=== PATIENT | male | born 1980 | race Caucasian/White ===

== ENCOUNTER 2017-12-04 23:15 | Emergency (ER) | payer MEDICAID ==
[~2017-12-04] VITALS: Ht 167.6 cm; Wt 74.8 kg
[~2017-12-04 23:15] MED LIST: CLIN-77 PO; L.RH1CAP PO
[2017-12-04 23:26] VITALS: BP_SYST 151
--- NOTE | 2017-12-04 23:26 | NUR ---
Patient triaged and placed in waiting room. VSS and patient appears in no acute distress at this time. Accompanied by self, awaiting available bed, and MD notified of need for MSE.
--- NOTE | 2017-12-05 01:15 | NUR ---
Patient to ER bed 3 to await MD evaluation.
--- NOTE | 2017-12-05 01:20 | NUR ---
Patient to ER via triage with c/o left great toe numbness/tingling with possible neuropathy from DM. Patient with wound to left foot without evidence of infection. Patient is awake, alert and oriented in no acute distress, BP elevated but vital signs otherwise stable, respirations even and unlabored, skin warm and dry to touch. Awaiting evaluation by ER MD, will continue to observe and assess.
--- NOTE | 2017-12-05 01:30 | NUR ---
Dr Wu at bedside to evaluate patient.
[2017-12-05 02:24] VITALS: BP_SYST 137
--- NOTE | 2017-12-05 02:24 | NUR ---
Patient given written and verbal discharge instructions and verbalizes understanding. ER MD discussed with patient the results and treatment provided. Patient in stable condition. ID arm band removed. Rx of Gabapentin given. Patient educated on pain management and to follow up with PMD. Pain Scale 3/10. Opportunity for questions provided and answered. Medication side effect fact sheet provided.
== END 2017-12-05 02:24 | disposition home or self-care (01) ==
LOC: SED 23:15
DX: E11.40 Type 2 diabetes mellitus with diabetic neuropathy, unspecified (principal); I10 Essential (primary) hypertension
CPT/HCPCS: 99283

== ENCOUNTER 2018-01-28 10:44 | Emergency (ER) | payer MEDICAID ==
[~2018-01-28] VITALS: Ht 170.2 cm; Wt 77.1 kg
[~2018-01-28 10:44] MED LIST changes: -CLIN-77 PO; +CLIN300C11 PO
[2018-01-28 11:10] VITALS: BP_SYST 112
[2018-01-28 11:38] VITALS: BP_SYST 110
== END 2018-01-28 11:38 | disposition home or self-care (01) ==
LOC: SED 10:44
DX: H10.89 Other conjunctivitis (principal); E11.9 Type 2 diabetes mellitus without complications; I10 Essential (primary) hypertension
CPT/HCPCS: 99283

== ENCOUNTER 2018-01-29 13:37 | Emergency (ER) | payer MEDICAID ==
[~2018-01-29] VITALS: Ht 170.2 cm; Wt 77.1 kg
[2018-01-29 13:55] VITALS: BP_SYST 137
[2018-01-29] MEDS ORDERED: KETOROLAC TROMETHAMINE 30 MG VIAL IM ONE (14:15)
[2018-01-29] MEDS ORDERED: cefTRIAXone 1 GM VIAL IM ONE (14:15)
[2018-01-29] MEDS ORDERED: CIPROFLOXACIN HCL 0.3% EYE DRP 2.5 ML DROPS OP ONE (14:45)
[2018-01-29 15:12] VITALS: BP_SYST 131
== END 2018-01-29 15:12 | disposition home or self-care (01) ==
LOC: SED 13:37
DX: H10.9 Unspecified conjunctivitis (principal); H53.149 Visual discomfort, unspecified; E11.9 Type 2 diabetes mellitus without complications; I10 Essential (primary) hypertension
CPT/HCPCS: 96372; 99284; J0696; J1885

== ENCOUNTER 2018-04-04 10:14 | Emergency (ER) | payer MEDICAID ==
[~2018-04-04] VITALS: Ht 170.2 cm; Wt 79.4 kg
[2018-04-04 10:32] VITALS: BP_SYST 145
[2018-04-04] MEDS ORDERED: NACL 0.9% 1,000 ML IV ONE (11:15)
[2018-04-04] MEDS ORDERED: LIDOCAINE 1% 10 MG/ML, 20 ML MDV INJ ONE (11:30)
[2018-04-04 11:36] LABS: BASOPHILS # (AUTO) 0.1 K/uL (0.0-0.2); BASOPHILS % (AUTO) 1.1 % (0.0-2.0); EOSINOPHILS # (AUTO) 0.2 K/uL (0.0-0.4); EOSINOPHILS % (AUTO) 1.4 % (0.0-4.0); HEMATOCRIT 39.1 % (36-54); HEMOGLOBIN 12.5 g/dL (14.0-18.0); LYMPHOCYTES # (AUTO) 2.6 K/uL (1.0-5.5); LYMPHOCYTES % (AUTO) 20.4 % (20.5-51.5); MEAN CORPUSCULAR HEMOGLOBIN 29 pg (27-31); MEAN CORPUSCULAR HGB CONC 32 % (32-36); MEAN CORPUSCULAR VOLUME 90 fL (79.0-98.0); MONOCYTES # (AUTO) 0.7 K/uL (0.0-1.0); MONOCYTES % (AUTO) 5.6 % (1.7-9.3); NEUTROPHILS # (AUTO) 9.1 K/uL (1.8-7.7); NEUTROPHILS % (AUTO) 71.5 % (40.0-70.0); PLATELET COUNT (AUTO) 427 K/uL (130-430); RED BLOOD CELL COUNT(AUTO) 4.36 MIL/uL (4.2-6.2); RED CELL DISTRIBUTION WIDTH 13.3 % (9.0-15.0); WHITE BLOOD COUNT (AUTO) 12.7 K/uL (4.8-10.8)
[2018-04-04] MEDS ORDERED: SULFAMETHOXAZOLE/TRIMETHOPR DS 1 TABLET PO ONE (11:45)
[2018-04-04] MEDS ORDERED: CLINDAMYCIN 900 mg/50mL D5W 50 ML IV ONE (11:45)
[2018-04-04 11:46] LABS: CALCIUM 9.2 mg/dL (8.4-11.0); CREATININE 0.76 mg/dL (0.55-1.30); POTASSIUM 3.2 mmol/L (3.5-5.1)
[2018-04-04 11:49] LABS: INR 1.1 (0.80-1.20); PROTHROMBIN TIME 10.8 SECS (9.5-12.5)
[2018-04-04 11:51] LABS: ALBUMIN 3.4 g/dL (3.4-4.8); TOTAL BILIRUBIN 0.4 mg/dL (0.0-1.0)
[2018-04-04 12:41] VITALS: BP_SYST 132
== END 2018-04-04 12:41 | disposition home or self-care (01) ==
LOC: SED 10:14
DX: L03.012 Cellulitis of left finger (principal); L03.011 Cellulitis of right finger; E11.9 Type 2 diabetes mellitus without complications; I10 Essential (primary) hypertension; Z79.4 Long term (current) use of insulin
CPT/HCPCS: 10060; 36415; 71045; 73130; 80053; 83605; 85025; 85610; 85730; 87040; 96365; 99285; J2001; J3490; J7030

== ENCOUNTER 2018-04-30 04:21 | Emergency (ER) | payer MEDICAID ==
[~2018-04-30] VITALS: Ht 170.2 cm; Wt 79.4 kg
[2018-04-30 04:37] VITALS: BP_SYST 157
[2018-04-30] MEDS ORDERED: BACITRACIN 1 GM OINT TP ONE (04:45)
[2018-04-30 05:11] VITALS: BP_SYST 133
== END 2018-04-30 05:13 | disposition home or self-care (01) ==
LOC: SED 04:21
DX: L03.811 Cellulitis of head [any part, except face] (principal); E11.9 Type 2 diabetes mellitus without complications; I10 Essential (primary) hypertension
CPT/HCPCS: 82962; 99283

== ENCOUNTER 2018-06-15 15:23 | Emergency (ER) | payer MEDICAID ==
[~2018-06-15] VITALS: Ht 170.2 cm; Wt 77.1 kg
[2018-06-15 15:30] VITALS: BP_SYST 137
--- NOTE | 2018-06-15 15:34 | NUR ---
Patient triaged and placed in waiting room. VSS and patient appears in no acute distress at this time. Accompanied by SELF, awaiting available bed, and MD notified of need for MSE.
--- NOTE | 2018-06-15 15:45 | NUR ---
Pt AAOx4 ambulated into ED c/o annular pustular skin lesions with contests easily expressed with palpation to crown of head x 1 month. Pt states he shaves his head daily, and has been placing neosporin on his wounds with slight improvement. Pt denies pain. No other injuries/complaints per pt/noted. Will continue to monitor.
--- NOTE | 2018-06-15 15:58 | NUR ---
ER MAL SCHMITT examining patient.
--- NOTE | 2018-06-15 16:00 | NUR ---
Patient given written and verbal discharge instructions and verbalizes understanding. ER SEED EXPERT OSKAR discussed with patient the results and treatment provided. Patient in stable condition. ID arm band removed. Rx of MUPIROCIN, DOXYCLINE given. Patient educated on pain management and to follow up with PMD. Pain Scale 0. Opportunity for questions provided and answered. Medication side effect fact sheet provided.
[2018-06-15 16:05] VITALS: BP_SYST 145
== END 2018-06-15 16:05 | disposition home or self-care (01) ==
LOC: SED 15:23
DX: L73.8 Other specified follicular disorders (principal); E11.9 Type 2 diabetes mellitus without complications; I10 Essential (primary) hypertension
CPT/HCPCS: 99283

== ENCOUNTER 2018-07-29 19:02 | Emergency (ER) | payer MEDICAID ==
[~2018-07-29] VITALS: Ht 170.2 cm; Wt 77.1 kg
[2018-07-29 19:18] VITALS: BP_SYST 143
[2018-07-29 20:00] VITALS: BP_SYST 133
== END 2018-07-29 20:00 | disposition home or self-care (01) ==
LOC: SED 19:02
DX: L73.1 Pseudofolliculitis barbae (principal); R03.0 Elevated blood-pressure reading, without diagnosis of hypertension
CPT/HCPCS: 99283

== ENCOUNTER 2018-09-28 16:01 | Emergency (ER) | payer MEDICAID ==
[~2018-09-28] VITALS: Ht 170.2 cm; Wt 77.1 kg
[2018-09-28 16:10] VITALS: BP_SYST 148
[2018-09-28] MEDS ORDERED: KETOROLAC TROMETHAMINE 60 MG/2 ML VIAL IM ONE (20:15)
[2018-09-28 21:50] VITALS: BP_SYST 148
== END 2018-09-28 21:50 | disposition home or self-care (01) ==
LOC: SED 16:01
DX: S40.022A Contusion of left upper arm, initial encounter (principal); E11.9 Type 2 diabetes mellitus without complications; I10 Essential (primary) hypertension; Z79.899 Other long term (current) drug therapy; X99.9XXA Assault by unspecified sharp object, initial encounter; Y93.89 Activity, other specified; Y92.89 Other specified places as the place of occurrence of the external cause; Y99.8 Other external cause status
CPT/HCPCS: 73060; 73080; 96372; 99283; J1885

== ENCOUNTER 2018-11-24 20:16 | Emergency (ER) | payer MEDICAID ==
[~2018-11-24] VITALS: Ht 170.2 cm; Wt 81.6 kg
[2018-11-24 20:20] VITALS: BP_SYST 151
== END 2018-11-24 21:10 | disposition home or self-care (01) ==
LOC: SED 20:16
DX: H66.92 Otitis media, unspecified, left ear (principal); E11.9 Type 2 diabetes mellitus without complications; I10 Essential (primary) hypertension; Z79.899 Other long term (current) drug therapy
CPT/HCPCS: 99283

== ENCOUNTER 2019-09-11 17:04 | Emergency (ER) | payer MEDICAID ==
[~2019-09-11] VITALS: Ht 167.6 cm; Wt 89.8 kg
[2019-09-11 17:10] VITALS: BP_SYST 123
[2019-09-11] MEDS ORDERED: ACETAMINOPHEN 500 MG TABLET PO ONE (17:30)
[2019-09-11] MEDS ORDERED: ONDANSETRON 4 MG ODT TAB PO ONE (17:30)
[2019-09-11] MEDS ORDERED: IPRATROPIUM/ALBUTEROL SULFATE 3 ML AMPUL.NEB (DUONEB) INH ONE (17:45)
[2019-09-11 18:52] VITALS: BP_SYST 116
== END 2019-09-11 18:52 | disposition home or self-care (01) ==
LOC: SED 17:04
DX: J06.9 Acute upper respiratory infection, unspecified (principal); E11.9 Type 2 diabetes mellitus without complications; I10 Essential (primary) hypertension; Z79.4 Long term (current) use of insulin
CPT/HCPCS: 71045; 82962; 86710; 94640; 99284; Q0162; 36415

== ENCOUNTER → 2020-01-16 | Emergency (ER) | payer MEDICAID ==
[~2020-01-16] VITALS: Ht 170.2 cm; Wt 93.0 kg
[~2020-01-16] MED LIST changes: +HYDROcodone/ACETAMIN 5-325 MG TAB (NORCO/ VICODIN) PO ONE
[2020-01-16 09:56] VITALS: BP_SYST 133
--- NOTE | 2020-01-16 10:01 | NUR ---
Patient triaged and placed in waiting room. VSS and patient appears in no acute distress at this time. Awaiting available bed, and MD notified of need for MSE.
--- NOTE | 2020-01-16 11:51 | NUR ---
Jean Claude angela in [facility] - 01/16/20 at 1202 by LINWOOD Patient left without being seen.
--- NOTE | 2020-01-16 12:02 | NUR ---
Patient to [facility] for evaluation. Side rails up.
--- NOTE | 2020-01-16 12:49 | NUR ---
Administered Pritchett PO as ordered by Dr. Kebede. Patient tolerated the medications well. See eMAR for details.
--- NOTE | 2020-01-16 12:53 | NUR ---
ER MD discussed with the patient the results and treatment provided. Patient given written and verbal discharge instructions and verbalized understanding. Opportunity for questions provided and answered. Patient in stable condition, last set of vital signs within normal limits, pain scale 0/10, speaking in full sentences and ambulated with a steady gait upon discharge. ID arm band removed. Rx of [place] given. Patient educated on pain management and to follow up with PMD. Medication side effect fact sheet provided.
== END | disposition still patient (30) ==
LOC: SED 09:52
DX: S42.291A Other displaced fracture of upper end of right humerus, initial encounter for closed fracture (principal); I10 Essential (primary) hypertension; E11.9 Type 2 diabetes mellitus without complications; Z79.4 Long term (current) use of insulin; V19.9XXA Pedal cyclist (driver) (passenger) injured in unspecified traffic accident, initial encounter; Y93.89 Activity, other specified; Y92.89 Other specified places as the place of occurrence of the external cause; Y99.8 Other external cause status
CPT/HCPCS: 73030; 99283

== ENCOUNTER 2020-06-18 14:06 | Emergency (ER) | payer MEDICAID ==
[~2020-06-18] VITALS: Ht 167.6 cm; Wt 90.7 kg
[2020-06-18 14:06] VITALS: BP_SYST 130
[~2020-06-18 14:06] MED LIST changes: -HYDROcodone/ACETAMIN 5-325 MG TAB (NORCO/ VICODIN) PO ONE
--- NOTE | 2020-06-18 14:06 | NUR ---
Patient triaged and placed in waiting room. VSS and patient appears in no acute distress at this time. Accompanied by SELF, awaiting available bed, and MD notified of need for MSE.
--- NOTE | 2020-06-18 14:11 | NUR ---
PT STATES THAT AFTER CUTTING HIS TOENAILS, NOTICED REDNESS AND SWELLING TO 1,2 AND 5TH TOES.
--- NOTE | 2020-06-18 14:20 | NUR ---
DR GO TO EVALUATE PT IN TRIAGE ROOM
--- NOTE | 2020-06-18 14:50 | NUR ---
Patient given written and verbal discharge instructions and verbalizes understanding. ER MD discussed with patient the results and treatment provided. Patient in stable condition. ID arm band removed. Rx of KECANDIDO NORCO given. Patient educated on pain management and to follow up with PMD. Pain Scale 0/10. Opportunity for questions provided and answered. Medication side effect fact sheet provided.
== END 2020-06-18 14:50 | disposition home or self-care (01) ==
LOC: SED 14:06
DX: L03.116 Cellulitis of left lower limb (principal); I10 Essential (primary) hypertension; E11.9 Type 2 diabetes mellitus without complications; Z79.899 Other long term (current) drug therapy
CPT/HCPCS: 99283

== ENCOUNTER 2021-10-29 06:22 | Emergency (ER) | payer MEDICAID, OTHER ==
[~2021-10-29] VITALS: Ht 165.1 cm; Wt 75.7 kg
[~2021-10-29 06:22] MED LIST changes: +CLIN-142 PO; -CLIN300C11 PO
--- NOTE | 2021-10-29 06:38 | NUR ---
Patient to ER bed 4 to gown for evaluation. Side rails up.
[2021-10-29 06:40] VITALS: BP_SYST 159
--- NOTE | 2021-10-29 06:44 | NUR ---
DR BRISCOE IN ROOM FOR EXAM
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
[2021-10-29] MEDS ORDERED: LIDO1ADH77 TD (06:50)
[2021-10-29] MEDS ORDERED: IBUP-1969 PO (06:50)
[2021-10-29] MEDS ORDERED: CYCL10TA24 PO (06:50)
[2021-10-29] MEDS ORDERED: ACET-2634 PO (06:50)
--- NOTE | 2021-10-29 06:55 | NUR ---
MEDICATED ORDERED, WILLMONITOR FOR EFFCT.
--- NOTE | 2021-10-29 06:57 | NUR ---
Patient given written and verbal discharge instructions and verbalizes understanding. ER MD discussed with patient the results and treatment provided. Patient in stable condition. ID arm band removed. Rx of IBUPRFEN, FLEXERIL, LIDOCAINE PATCG, TYLENOL ES given. Patient educated on pain management and to follow up with PMD. Pain Scale . Opportunity for questions provided and answered. Medication side effect fact sheet provided.
[2021-10-29] MEDS ORDERED: KETOROLAC TROMETHAMINE 60 MG/2 ML VIAL IM ONE (07:00)
== END 2021-10-29 06:56 | disposition home or self-care (01) ==
LOC: SED 06:22
DX: S39.012A Strain of muscle, fascia and tendon of lower back, initial encounter (principal); I10 Essential (primary) hypertension; E11.9 Type 2 diabetes mellitus without complications; Z79.899 Other long term (current) drug therapy; V49.49XA Driver injured in collision with other motor vehicles in traffic accident, initial encounter; Y93.89 Activity, other specified; Y92.89 Other specified places as the place of occurrence of the external cause; Y99.8 Other external cause status
CPT/HCPCS: 96372; 99283; J1885

== ENCOUNTER 2023-02-20 09:25 | Emergency (ER) | payer MEDICAID ==
[~2023-02-20] VITALS: Ht 157.5 cm; Wt 90.7 kg
[~2023-02-20 09:25] MED LIST changes: +ACET-2634 PO; +CYCL10TA24 PO; +IBUP-1969 PO; +LIDO1ADH77 TD
[2023-02-20 09:46] VITALS: BP_SYST 155; PULSE 85; RESP 20; TEMP 98.3; O2SAT 98
[2023-02-20] MEDS ORDERED: PIPERACILLIN/TAZO 3.375 GM in NS 50 ML IV ONE (10:15)
[2023-02-20] MEDS ORDERED: PIPERACILLIN/TAZOBACTAM 3.375 GM/VIAL (ZOSYN) IV ONE (10:32)
[2023-02-20 10:44] LABS: CALCIUM 9.1 mg/dL (8.4-11.0); CREATININE 1.14 mg/dL (0.55-1.30); POTASSIUM 4.1 mmol/L (3.5-5.1)
[2023-02-20 10:48] LABS: BASOPHILS # (AUTO) 0.1 K/uL (0.0-0.2); BASOPHILS % (AUTO) 0.8 % (0.0-2.0); EOSINOPHILS # (AUTO) 0.3 K/uL (0.0-0.4); EOSINOPHILS % (AUTO) 2.4 % (0.0-4.0); HEMATOCRIT 41.9 % (36-54); HEMOGLOBIN 14.3 g/dL (14.0-18.0); LYMPHOCYTES # (AUTO) 2.2 K/uL (1.0-5.5); LYMPHOCYTES % (AUTO) 20.6 % (20.5-51.5); MEAN CORPUSCULAR HEMOGLOBIN 30 pg (27-31); MEAN CORPUSCULAR HGB CONC 34 % (32-36); MEAN CORPUSCULAR VOLUME 87 fL (79.0-98.0); MONOCYTES # (AUTO) 0.8 K/uL (0.0-1.0); MONOCYTES % (AUTO) 7.1 % (1.7-9.3); NEUTROPHILS # (AUTO) 7.5 K/uL (1.8-7.7); NEUTROPHILS % (AUTO) 69.1 % (40.0-70.0); PLATELET COUNT (AUTO) 370 K/uL (130-430); RED BLOOD CELL COUNT(AUTO) 4.83 MIL/uL (4.2-6.2); RED CELL DISTRIBUTION WIDTH 13.8 % (9.0-15.0); WHITE BLOOD COUNT (AUTO) 10.8 K/uL (4.8-10.8)
[2023-02-20 11:02] LABS: ALBUMIN 3.3 g/dL (3.4-4.8); TOTAL BILIRUBIN 0.5 mg/dL (0.0-1.0); TOTAL PROTEIN, SERUM 7.5 g/dL (6.4-8.3)
[2023-02-20] MEDS ORDERED: CEPH-548 PO (12:34)
[2023-02-20 12:58] VITALS: BP_SYST 133; PULSE 85; RESP 20; TEMP 98.3; O2SAT 98
== END 2023-02-20 13:04 | disposition home or self-care (01) ==
LOC: SED 09:25
DX: E11.621 Type 2 diabetes mellitus with foot ulcer (principal); E11.9 Type 2 diabetes mellitus without complications; I10 Essential (primary) hypertension; Z79.899 Other long term (current) drug therapy
CPT/HCPCS: 99284; 96365; 80053; 82962; 85025; 87040; 36415; 83605; J2543

== ENCOUNTER 2023-04-18 19:59 | Emergency (ER) | payer MEDICAID ==
[~2023-04-18] VITALS: Ht 170.2 cm; Wt 90.7 kg
[~2023-04-18 19:59] MED LIST changes: +CEPH-548 PO
[2023-04-18 20:08] VITALS: BP_SYST 154; PULSE 97; RESP 20; TEMP 97.1; O2SAT 98
[2023-04-18] MEDS ORDERED: NACL 0.9% 1,000 ML IV ONE (21:45)
[2023-04-18 21:59] LABS: BASOPHILS # (AUTO) 0.1 K/uL (0.0-0.2); BASOPHILS % (AUTO) 1.2 % (0.0-2.0); EOSINOPHILS # (AUTO) 0.5 K/uL (0.0-0.4); EOSINOPHILS % (AUTO) 4.7 % (0.0-4.0); HEMATOCRIT 43.8 % (36-54); HEMOGLOBIN 14.7 g/dL (14.0-18.0); LYMPHOCYTES # (AUTO) 3.7 K/uL (1.0-5.5); LYMPHOCYTES % (AUTO) 35.5 % (20.5-51.5); MEAN CORPUSCULAR HEMOGLOBIN 29 pg (27-31); MEAN CORPUSCULAR HGB CONC 34 % (32-36); MEAN CORPUSCULAR VOLUME 86 fL (79.0-98.0); MONOCYTES # (AUTO) 0.6 K/uL (0.0-1.0); MONOCYTES % (AUTO) 6.1 % (1.7-9.3); NEUTROPHILS # (AUTO) 5.5 K/uL (1.8-7.7); NEUTROPHILS % (AUTO) 52.5 % (40.0-70.0); PLATELET COUNT (AUTO) 490 K/uL (130-430); RED BLOOD CELL COUNT(AUTO) 5.09 MIL/uL (4.2-6.2); RED CELL DISTRIBUTION WIDTH 14.5 % (9.0-15.0); WHITE BLOOD COUNT (AUTO) 10.5 K/uL (4.8-10.8)
[2023-04-18 22:16] LABS: ALBUMIN 3.5 g/dL (3.4-4.8); CALCIUM 10.4 mg/dL (8.4-11.0); CREATININE 1.16 mg/dL (0.55-1.30); POTASSIUM 4.2 mmol/L (3.5-5.1); TOTAL BILIRUBIN 0.3 mg/dL (0.0-1.0); TOTAL PROTEIN, SERUM 7.6 g/dL (6.4-8.3)
[2023-04-19 00:41] VITALS: BP_SYST 150; PULSE 97; RESP 20; TEMP 97.1; O2SAT 98
== END 2023-04-19 00:41 | disposition home or self-care (01) ==
LOC: SED 19:59
DX: R53.1 Weakness (principal); B34.9 Viral infection, unspecified; R11.2 Nausea with vomiting, unspecified; E11.9 Type 2 diabetes mellitus without complications; I10 Essential (primary) hypertension; Z79.899 Other long term (current) drug therapy
CPT/HCPCS: 99285; 96360; 71045; 80053; 85025; 87040; 36415; 93005; 83605; J7030

== ENCOUNTER 2023-10-26 19:19 | Emergency (ER) | payer MEDICAID ==
[~2023-10-26] VITALS: Ht 170.2 cm; Wt 90.7 kg
[2023-10-26 19:31] VITALS: BP_SYST 128; PULSE 65; RESP 16; TEMP 97.4; O2SAT 100
[2023-10-26] MEDS ORDERED: CLOT24CR TP (20:54)
[2023-10-26] MEDS ORDERED: TRIA80OI TP (20:57)
[2023-10-26] MEDS ORDERED: DOXY100C5 PO (20:59)
[2023-10-26 21:02] LABS: BILIRUBIN,URINE NEGATIVE (NEGATIVE); BLOOD, URINE TRACE (NEGATIVE); CLARITY/URINE CLEAR (CLEAR); COLOR,URINE YELLOW (YELLOW); GLUCOSE,URINE 3+ (NEGATIVE); KETONES,URINE NEGATIVE (NEGATIVE); LEUKOCYTE ESTERASE ,URINE NEGATIVE (NEGATIVE); NITRITE, URINE NEGATIVE (NEGATIVE); PROTEIN URINE NEGATIVE (NEGATIVE); UROBILINOGEN,URINE 0.2 (0.2-1.0)
[2023-10-26 21:15] LABS: BACTERIA,URINE None Seen /HPF (None Seen)
[2023-10-26] MEDS: DOXYCYCLINE HYCLATE 100 MG CAPSULE PO ONE (21:38)
[2023-10-26] MEDS: cefTRIAXone 1 GM VIAL IM ONE (21:38)
[2023-10-26 21:52] VITALS: BP_SYST 126; PULSE 81; RESP 20; TEMP 97.4; O2SAT 100
== END 2023-10-26 21:53 | disposition home or self-care (01) ==
LOC: SED 19:19
DX: N47.1 Phimosis (principal); N48.1 Balanitis; I10 Essential (primary) hypertension; E11.9 Type 2 diabetes mellitus without complications; Z79.899 Other long term (current) drug therapy
CPT/HCPCS: 99283; 81001; 36415; 96372; 87491; 81000; 81015; J0696